=== PATIENT | male | born 1945 | race Caucasian/White ===

== ENCOUNTER 2017-06-19 13:29 | Outpatient (CLI) | payer MEDICARE ==
[2017-06-19 16:40] LABS: #Basophils 0.1 thou/uL (0.0-0.2); #Eosinphils 0.2 thou/uL (0.0-0.7); #Lymphocytes 2.6 thou/uL (1.20-3.40); #Monocytes 0.5 thou/uL (0.11-0.59); #Neutrophils 3.3 thou/uL (1.40-6.50); %Basophils 1.8 % (0.0-1.0); %Eosinophils 3.4 % (0.0-10.0); %Lymphocytes 38.7 % (21.0-51.0); %Neutrophils 49.1 % (42.0-75.0); Hemoglobin 15.4 g/dL (14.0-18.0); Mean Corpuscular HGB CONC 33.7 g/dL (32.0-36.0); Mean Corpuscular Hemoglobin 29.6 pg (27.0-31.0); Mean Corpuscular Volume 87.8 fl (80.0-94.0); Mean Platelet Volume 7.5 fL (7.4-10.4); Platelet Count 256 thou/uL (130-400); RBC Distribution Width 12.1 % (11.5-14.5); Red Blood Cell (RBC) Count 5.21 mill/uL (4.70-6.10); White Blood Cell (WBC) Count 6.8 thou/uL (4.8-10.8)
[2017-06-19 16:52] LABS: ALT (SGPT) 25 U/L (8-55); AST (SGOT) 20 U/L (5-34); Albumin 4.2 g/dL (3.4-4.8); Alkaline Phosphatase 65 U/L (40-150); Anion Gap 15 mmol/L (10-20); BUN (Urea Nitrogen) 18 mg/dL (8.4-25.7); Bilirubin, Total 1.3 mg/dL (0.2-1.2); Calc. Creatinine Clearance 0 mL/min (70-130); Calcium 9.2 mg/dL (7.8-10.44); Carbon Dioxide 25 mmol/L (23-31); Chloride 103 mmol/L (98-107); Cholesterol 176 mg/dl (< 200 Desired); Estimated GFR-MDRD 81; Globulin 2.9 g/dL (2.4-3.5); Glucose 106 mg/dL (83-110); HDL Cholesterol 44 mg/dL (>60 Neg Risk); LDL Cholesterol, Calculated 112 mg/dL; Potassium 4.7 mmol/L (3.5-5.1); Protein, Total 7.1 g/dL (5.8-8.1); Sodium 138 mmol/L (136-145); Triglycerides 102 mg/dL (Less than 150)
[2017-06-19 17:11] LABS: PSA-Symptomatic (DIAGNOSTIC) 2.19 ng/mL (0-4.0); Thyroid Stimulating Hormone 2.865 uIU/mL (0.35-4.94)
== END 2017-06-19 13:30 | disposition home or self-care (01) ==
LOC: LABLEX 13:29
PROVIDERS: ATTEND Family Medicine
DX: E03.9 Hypothyroidism, unspecified (principal); I10 Essential (primary) hypertension; N40.1 Benign prostatic hyperplasia with lower urinary tract symptoms
CPT/HCPCS: 80053; 80061; 84153; 84443; 85025

== ENCOUNTER 2019-01-23 09:32 | Outpatient (CLI) | payer MEDICARE, BC ==
--- NOTE | 2019-01-23 10:14 | RAD ---
LEFT KNEE THREE VIEWS: HISTORY: Knee pain. FINDINGS: There is severe osteoarthritic change of the knee. Marked medial compartment narrowing and prominent degenerative changes of the patellofemoral and lateral compartments. No joint effusion. IMPRESSION: Marked osteoarthritic change of the knee. POS: [facility]
== END 2019-01-23 09:33 | disposition home or self-care (01) ==
LOC: BURRAD 09:32
PROVIDERS: ATTEND Orthopaedic Surgery
DX: M25.562 Pain in left knee (principal); M17.12 Unilateral primary osteoarthritis, left knee
CPT/HCPCS: 73565

== ENCOUNTER 2020-09-25 06:15 | Emergency (ER) | payer MEDICARE, BC | END 2020-09-25 07:22 | disposition home or self-care (01) | LOC: BURERS 06:15 | DX: K62.5 Hemorrhage of anus and rectum (principal); K64.8 Other hemorrhoids; E03.9 Hypothyroidism, unspecified; I10 Essential (primary) hypertension; F17.220 Nicotine dependence, chewing tobacco, uncomplicated; Z79.82 Long term (current) use of aspirin; Z79.899 Other long term (current) drug therapy | CPT/HCPCS: 99283 ==

== ENCOUNTER 2021-07-01 09:20 | Emergency (ER) | payer MEDICARE, BC ==
[2021-07-01 10:40] LABS: Bilirubin Moderate (Negative); Blood, Urine Large (Negative); Glucose, Urine (Dipstick) Negative (Negative); Ketone, Urine Trace mg/dL (Negative); Leukocyte Trace (Negative); Nitrite Negative (Negative); Protein, Urine (Dipstick) > or equal to 300 mg/dL (Neg-Trace); Specific Gravity, Urine 1.025 (1.005-1.030)
[2021-07-01 10:45] LABS: Bacteria/HPF 1+ HPF (None Seen); Clarity Cloudy (Clear); RBC/HPF 21-50 HPF (0-3)
== END 2021-07-01 11:07 | disposition home or self-care (01) ==
LOC: BURERS 09:20
DX: N39.0 Urinary tract infection, site not specified (principal); E03.9 Hypothyroidism, unspecified; I10 Essential (primary) hypertension; F17.220 Nicotine dependence, chewing tobacco, uncomplicated
CPT/HCPCS: 81003; 81015; 87077; 87086; 87186; 99283